=== PATIENT | female | born 1995 | race Caucasian/White ===

== ENCOUNTER → 2018-08-14 | Outpatient (CLI) | payer OTHER ==
[2013-11-11 17:59] VITALS: BP 94/58
[~2018-08-14] MED LIST: ADDAPRIN200 MG PO; CYCLAFEM PO; OXYCODONE5 MG PO
== END ==
LOC: RAD 14:11
DX: R51 Headache (principal); N64.52 Nipple discharge

== ENCOUNTER → 2018-10-14 | Outpatient (CLI) | payer OTHER ==
[2013-11-11 17:59] VITALS: BP 94/58
== END ==
LOC: LAB 11:09
DX: N39.0 Urinary tract infection, site not specified (principal); B96.29 Other Escherichia coli [E. coli] as the cause of diseases classified elsewhere; R39.9 Unspecified symptoms and signs involving the genitourinary system; R30.9 Painful micturition, unspecified

== ENCOUNTER → 2020-07-31 | Outpatient (CLI) | payer OTHER ==
[2020-07-28 15:51] VITALS: BP 100/70
[~2020-07-31] MED LIST changes: +NORTREL 35 MCG-1 TA1 PO; +SERTRALINE HYD100 MG PO; +SUMATRIPTAN SUC50 M1 PO; +TOPIRAMATE50 MG PO; +ZOLPIDEM TART10 MG PO
== END ==
LOC: VAS 15:22 → RAD 15:45
DX: R55 Syncope and collapse (principal)

== ENCOUNTER → 2020-08-01 | Outpatient (CLI) | payer OTHER ==
[2020-07-28 15:51] VITALS: BP 100/70
== END ==
LOC: RAD 10:14
DX: D72.819 Decreased white blood cell count, unspecified (principal); R06.00 Dyspnea, unspecified; R55 Syncope and collapse

== ENCOUNTER → 2024-09-05 | Outpatient (CLI) | payer BC ==
[2024-09-05 15:27] LABS: CLUE CELLS PRESENT (Not Observd)
== END ==
LOC: LAB 15:12
PROVIDERS: Nurse Practitioner
DX: N89.8 Other specified noninflammatory disorders of vagina (principal)
CPT/HCPCS: Q0111